=== PATIENT | female | born 1940 | race Caucasian/White ===

== ENCOUNTER 2016-11-18 14:45 | Emergency (ER) | payer MEDICARE, BC ==
[2016-11-18 14:54] VITALS: BP 124/66
[2016-11-18] MEDS ORDERED: NS 0.9% 1000 ML* 1,000 ML IV ONE (15:59)
[2016-11-18] MEDS ORDERED: Ondansetron INJ* 2 MG/ML VIAL IV ONE ×2 (15:59→17:13)
[2016-11-18 16:09] LABS: Hematocrit 43 % (35-47); Hemoglobin 14.1 g/dl (12.0-16.0); Mean Corpuscular HGB Conc 33 g/dl (31-36); Mean Corpuscular Hemoglobin 30 pg (27-31); Mean Corpuscular Volume 91 fL (80-97); Mean Platelet Volume 10 um3 (7.4-10.4); Red Blood Count 4.69 10^6/ul (4.0-5.4); Red Cell Distribution Width 14 % (10.5-15); White Blood Count 10.1 10^3/ul (3.5-10.8)
[2016-11-18 16:15] LABS: Urine Bacteria Absent (Absent); Urine Bilirubin Negative (Negative); Urine Glucose Negative (Negative); Urine Nitrite Negative (Negative)
[2016-11-18 16:36] LABS: Albumin 3.9 g/dL (3.2-5.2); BUN/Creatinine Ratio 13.8 (8-20); C Reactive Protein 54.43 mg/L (< 5.00); Calcium 9.4 mg/dL (8.6-10.3); EGFR African American 74.7 (>60); EGFR Non-African American 58.1 (>60); Globulin 3.3 g/dL (2-4); Magnesium 1.9 mg/dL (1.9-2.7); Potassium 3.3 mmol/L (3.5-5.0); Total Bilirubin 0.8 mg/dL (0.2-1.0); Total Protein 7.2 g/dL (6.4-8.9)
--- NOTE | 2016-11-18 16:36 | RAD ---
INDICATION: Fever and abdominal pain COMPARISON: CT abdomen pelvis October 15, 2016 TECHNIQUE: Supine and upright views of the abdomen were obtained. FINDINGS: The small bowel and colon appear nondistended. Gas is seen throughout the length of the transverse colon but there is no pathologic dilatation of the transverse colon. No free intraperitoneal air is seen. Surgical material is seen overlying the upper midline pelvis. No grossly abnormal or pathologic appearing calcifications are noted. Visualized bones are within normal limits for the patient's age. IMPRESSION: No radiographically apparent acute abdominal abnormality.
[2016-11-18] MEDS ORDERED: Acetaminophen ADULT LIQ* 650 MG/20.3 ML UDC PO ONE (17:15)
[2016-11-18] MEDS ORDERED: Potassium Chlor TAB* 20 MEQ TAB.ER PO ONE (17:21)
--- NOTE | 2016-11-18 18:57 | ED ---
Ronnie Recinos Auryana, scribed for Harris Gibson MD on 11/18/16 at 1558 . Abdominal Pain/Female - HPI Summary HPI Summary: 76 year old female presents with abdominal pain starting this morning. She reports a fever yesterday (101.1 - on arrival 100.5). Patient also had nausea and diarrhea (x1 yesterday - small BM - but NML this morning). She does report that last week she had an U.R.I. with a sore throat. PMHx of colitis, migraines , hypothyroidism, OA, hysterectomy, and colon CA (1990). FHx is significant for cancer, DE and stroke. - History of Current Complaint Chief Complaint: EDAbdPain Stated Complaint: FEVER,ABD PAIN Time Seen by Provider: 11/18/16 15:47 Hx Obtained From: Patient Hx Last Menstrual Period: N/A ?: No Onset/Duration: Gradual Onset, Lasting Hours - this morning, Still Present Timing: Constant Severity Initially: Mild Severity Currently: Mild Pain Intensity: 2 Pain Scale Used: 0-10 Numeric Location: Diffuse Associated Signs and Symptoms: Positive: Fever, Nausea, Diarrhea. Negative: Vomiting Allergies/Adverse Reactions: Allergies Allergy/AdvReac Type Severity Reaction Status Date / Time Cephalosporins Allergy Severe N/V Verified 10/15/16 16:32 Morphine Allergy Severe N/V SEVERE Verified 10/15/16 16:32 Nitrofurantoin Allergy Severe N/V, Verified 10/15/16 16:32 [From Macrodantin] FLUSHED SKIN Sumatriptan [From Imitrex] Allergy Severe Difficulty Verified 10/15/16 16:32 Breathing Sulfa Antibiotics Allergy Unknown Unknown Verified 10/15/16 16:32 Reaction Details PMH/Surg Hx/FS Hx/Imm Hx Endocrine/Hematology History: Reports: Hx Thyroid Disease Denies: Hx Anticoagulant Therapy, Hx Diabetes, Other Endocrine/Hematological Disorders Cardiovascular History: Reports: Other Cardiovascular Problems/Disorders - Dyslipidemia Denies: Hx Hypertension, Hx Pacemaker/ICD Respiratory History: Reports: Hx Sleep Apnea - SLEEP TEST 1 YR AGO, MILD APNEA Denies: Hx Asthma, Hx Chronic Obstructive Pulmonary Disease (COPD), Other Respiratory Problems/Disorders GI History: Denies: Other GI Disorders History: Denies: Hx Renal Disease, Other Problems/Disorders Musculoskeletal History: Reports: Hx Arthritis - Osteoarthritis, HANDS, FEET, Hx Bursitis - HIPS, GOES TO PT FOR THERAPY, Other Musculoskeletal History - SCIATICA Sensory History: Reports: Hx Contacts or Glasses - GLASSES, Hx Vision Problem Denies: Hx Hearing Aid, Other Sensory Impairments Opthamlomology History: Reports: Hx Contacts or Glasses - GLASSES, Hx Vision Problem Denies: Other Sensory Impairments Neurological History: Reports: Hx Headaches - 1-2/MONTH, Hx Migraine - TAKES AXERT PRN Denies: Hx Dementia, Hx Seizures, Other Neuro Impairments/Disorders Psychiatric History: Denies: Hx Substance Abuse, Other Psychiatric Issues/Disorders - Cancer History Cancer Type, Location and Year: 1990- colon cancer. Sciatica - Surgical History Surgery Procedure, Year, and Place: 1960 [id number]. 1962 [id number]. 1963 [id number]. 1968 VEIN STRIPPING RIGHT LEG- [facility] [place]. 1983 HYSTERECTOMY- [facility] [place]. 1990 COLON CANCER- [facility] Hx Anesthesia Reactions: Yes - SEVERE N/V AFTER SURG R/T MORPHINE Infectious Disease History: No Infectious Disease History: Denies: Hx Hepatitis, Hx Human Immunodeficiency Virus (HIV), Traveled Outside the in Last 30 Days - Family History Known Family History: Positive: Cardiac Disease - DE, Other - CVA - mother, cancer - Social History Occupation: Retired Lives: With Family Alcohol Use: None Hx Substance Use: No Substance Use Type: Reports: None Hx Tobacco Use: No Smoking Status (MU): Never Smoked Tobacco Review of Systems Positive: Fever Eyes: Negative ENT: Negative Cardiovascular: Negative Respiratory: Negative Positive: Abdominal Pain, Diarrhea, Nausea Genitourinary: Negative Musculoskeletal: Negative Skin: Negative Neurological: Negative Psychological: Normal All Other Systems Reviewed And Are Negative: Yes Physical Exam - Summary Physical Exam Summary: VITAL SIGNS: Reviewed. GENERAL: Patient is a well-developed and nourished female who is lying comfortable in the stretcher. Patient is not in any acute respiratory distress. HEAD AND FACE: Normocephalic and atraumatic. EYES: PERRLA, EOMI x 2, No injected conjunctiva. EARS: Hearing grossly intact. Ear canals and tympanic membranes are WNL. MOUTH: Oropharynx within normal limits. NECK: Supple, trachea is midline, no adenopathy, no JVD. CHEST: Symmetric, no tenderness at palpation LUNGS: Clear to auscultation bilaterally. No wheezing or crackles. CVS: RRR, S1 and S2 present, no murmurs or gallops appreciated. ABDOMEN: Soft, diffuse abdominal tenderness mostly in the LLQ. No signs of distention. Positive bowel sounds. No rebound no guarding, and no masses palpated. No abdominal bruit or pulsations. EXTREMITIES: FROM in all major joints, no edema, no cyanosis or clubbing. NEURO: Alert and oriented x 3. No acute neurological deficits. Speech is normal. SKIN: Dry and warm Triage Information Reviewed: Yes Vital Signs On Initial Exam: Initial Vitals Temp Pulse Resp BP 100.5 F 91 20 124/66 11/18/16 14:47 11/18/16 14:47 11/18/16 14:47 11/18/16 14:47 Vital Signs Reviewed: Yes Diagnostics - Vital Signs Vital Signs Temp Pulse Resp BP Pulse Ox 11/18/16 14:50 100.5 F 91 20 124/66 99 11/18/16 14:47 100.5 F 91 20 124/66 - Laboratory Result Diagrams: 11/18/16 15:40 11/18/16 15:40 Lab Statement: Any lab studies that have been ordered have been reviewed, and results considered in the medical decision making process. - Radiology ABD XR Xray Interpretation: No Acute Changes Radiology Interpretation Completed By: Radiologist - EKG 17:23 EKG Interpretation: NSR @79 BPM, NO ST ELEVATION Re-Evaluation - Re-Evaluation First Eval Re-Evaluation Time: 17:59 Change: Improved Comment: patient reports that she is feeling better and does not have any more abdominal pain. however, had an episode of watery diarrhea without blood. Abdominal Pain Fem Course/Dx - Course Course Of Treatment: 76 year old female presents with abdominal pain starting this morning. She reports a fever yesterday (101.1 - on arrival 100.5). Patient also had nausea and diarrhea (x1 yesterday - small BM - but NML this morning). She does report that last week she had an U.R.I. with a sore throat. PMHx of colitis, migraines, hypothyroidism, OA, hysterectomy, and colon CA (1990 ). FHx is significant for cancer, DE and stroke. Test results are found within normal limits except for platelets 138, K 3.3, glucose 124, CRP 54.43 UA is negative. CXR impression: No radiographically apparent acute abdominal abnormality. In the ED course she was given IV fluids for hydration, tylenol for the fever and zofran for nausea. After medications she is feeling better. She reports her abdominal pain has subsided but she developed and episode of Diarrhea. Diarrhea is watery w/o bloods. Stool cultures sent. Patient reports that she is feeling better and she wants to go home. SHe reports that she will f /u the stool culture with his PCP. Patient was instructed that it will take another 40 minutes for the stool culture, fecal leukocytes and c diff to return. She declines and she wants to go home. Patient is hemodynamically stable and A+O x 3. - Diagnoses Differential Diagnosis: Positive: Other Provider Diagnoses: Abdominal pain, Nausea & vomiting, Diarrhea Discharge - Discharge Plan Condition: Stable Disposition: HOME Prescriptions: Ondansetron ODT TAB* [Zofran 4 MG Odt TAB*] 4 mg PO Q6H PRN #10 tab.odt PRN Reason: Vomiting Patient Education Materials: Acute Nausea and Vomiting (ED), Acute Diarrhea (ED ), Acute Abdominal Pain (ED) Referrals: Twan Guerrero MD [Primary Care Provider] - 2 Days The documentation as recorded by the Ronnie milian Auryana accurately reflects the service I personally performed and the decisions made by me, Harris Gibson MD.
== END 2016-11-18 19:00 | disposition home or self-care (01) ==
LOC: ED 14:45
DX: R10.9 Unspecified abdominal pain (principal); R11.2 Nausea with vomiting, unspecified; R50.9 Fever, unspecified; R19.7 Diarrhea, unspecified
CPT/HCPCS: 36415; 74020; 80053; 81003; 81015; 82150; 83605; 83630; 83690; 83735; 85025; 86140; 87493; 93005; 96374; 96376; 99284; A9270-GY; J2405

== ENCOUNTER 2018-03-27 10:09 | Emergency (ER) | payer MEDICARE, BC ==
--- NOTE | 2018-03-27 10:19 | ED ---
Adult Trauma - HPI Summary HPI Summary: A 77 y/o F presents to ED s/p fall with c/o dizziness onset shortly [employer]. Pt was walking to her car from the diner and tripped on the sidewalk and fell onto her knees and face. She states not being dizzy prior to the fall, only afterwards. Associated sx: nausea, pale, diaphoresis, nose pain, knee pain. Denies LOC, SALAS, vision changes. Alleviating factors: supine position. Pt was given 4 Zofran by EMS. Denies being on blood thinners. PMHx: Colonoscopy 3 days ago, no polyps found. Denies PMHx: CVA, MD. Tetanus is not UTD. - History of Current Complaint Stated Complaint: FALL Hx Obtained From: Patient, EMS Hx Last Menstrual Period: N/A Mechanism of Injury: Fall Onset/Duration: Traumatic - fall, Still Present Onset of Pain: Immediate Onset Severity: Moderate Current Severity: Moderate Pain Scale Used: 0-10 Numeric Location: Other - nose pain Alleviating Factor(s): EMS Treatment - 4 zofran, Other - pos: supine Associated Signs & Symptoms: Positive: Nausea/Vomiting, Other: - pos: pale; diaphoresis; nose and knee pain - Allergy/Home Medications Allergies/Adverse Reactions: Allergies Allergy/AdvReac Type Severity Reaction Status Date / Time morphine Allergy Severe Severe Verified 03/05/18 10:40 Nausea And Vomiting sumatriptan [From Imitrex] Allergy Severe Difficulty Verified 03/05/18 10:40 Breathing Cephalosporins Allergy Nausea And Verified 03/05/18 10:40 Vomiting nitrofurantoin Allergy nausea and Verified 03/05/18 10:40 [From Macrodantin] vomiting, flushed skin Sulfa (Sulfonamide Allergy Unknown Verified 03/05/18 10:40 Antibiotics) Reaction Details PMH/Surg Hx/FS Hx/Imm Hx Previously Healthy: No Endocrine/Hematology History: Reports: Hx Thyroid Disease Denies: Hx Anticoagulant Therapy, Hx Diabetes, Other Endocrine/Hematological Disorders Cardiovascular History: Reports: Other Cardiovascular Problems/Disorders - Dyslipidemia Denies: Hx Hypertension, Hx Pacemaker/ICD Respiratory History: Reports: Hx Sleep Apnea - SLEEP TEST 1 YR AGO, MILD APNEA Denies: Hx Asthma, Hx Chronic Obstructive Pulmonary Disease (COPD), Other Respiratory Problems/Disorders GI History: Denies: Other GI Disorders History: Denies: Hx Renal Disease, Other Problems/Disorders Musculoskeletal History: Reports: Hx Arthritis - Osteoarthritis, HANDS, FEET, Hx Bursitis - HIPS, GOES TO PT FOR THERAPY, Other Musculoskeletal History - SCIATICA Sensory History: Reports: Hx Contacts or Glasses - GLASSES, Hx Vision Problem Denies: Hx Hearing Aid, Other Sensory Impairments Opthamlomology History: Reports: Hx Contacts or Glasses - GLASSES, Hx Vision Problem Denies: Other Sensory Impairments Neurological History: Reports: Hx Headaches - 1-2/MONTH, Hx Migraine - TAKES AXERT PRN, Other Neuro Impairments/Disorders - PAIN CLINIC PATIENT Denies: Hx Dementia, Hx Seizures Psychiatric History: Denies: Hx Substance Abuse, Other Psychiatric Issues/Disorders - Cancer History Cancer Type, Location and Year: 1990- colon cancer. Sciatica - Surgical History Surgery Procedure, Year, and Place: 1960 [id number]. 1962 [id number]. 1963 [id number]. 1968 VEIN STRIPPING RIGHT LEG- [facility] [place]. 1983 HYSTERECTOMY- [facility] [place]. 1990 COLON CANCER- [facility] Hx Anesthesia Reactions: Yes - SEVERE N/V AFTER SURG R/T MORPHINE Infectious Disease History: Denies: Hx Hepatitis, Hx Human Immunodeficiency Virus (HIV) - Family History Known Family History: Positive: Cardiac Disease - MD, Other - CVA - mother, cancer - Social History Occupation: Retired Lives: With Family Alcohol Use: None Hx Substance Use: No Substance Use Type: Reports: None Hx Tobacco Use: No Smoking Status (MU): Never Smoked Tobacco Review of Systems Positive: Skin Diaphoresis, Other - pale Negative: Blurred Vision, Diplopia ENT: Other - pos: nose pain Cardiovascular: Negative Respiratory: Negative Positive: Nausea. Negative: Abdominal Pain Genitourinary: Negative Positive: Other - pos: knee pain Positive: Bruising - to nose Neurological: Other - pos: dizziness Negative: Headache, Syncope Psychological: Normal All Other Systems Reviewed And Are Negative: No Physical Exam - Summary Physical Exam Summary: Appearance: Alert, conversive, nontoxic appearing. Pt arrived with clothes on, there is grass on her abd and lower extremities due to falling outside. Skin: Warm, dry, no mottling, no rashes, no contusions HEENT: EOMI, PERRL, moist mucous membranes. Pt has dried blood to nose. Multiple superficial abrasions to tip of nose. No septal hematoma. No hemotypanum. Neck: No masses on the neck, supple Respiratory: Clear to auscultation, breath sounds present, no rales, no rhonchi , no wheezes Cardiovascular: RRR, pulses are symmetrical in both lower and upper extremities Abdomen: Soft, non-tender Bowel Sounds: Present Musculoskeletal: No CVA tenderness, no obvious deformity, moving all extremities in a grossly normal manner. Bruising and abrasion to R patella. Neurological: A&Ox3, CN II-XII Intact, moving all extremities symmetrically Psychiatric: Normal affect and mood Triage Information Reviewed: Yes Vital Signs Reviewed: Yes - Lizz Coma Scale Best Eye Response: 4 - Spontaneous Best Motor Response: 6 - Obeys Commands Best Verbal Response: 5 - Oriented Coma Scale Total: 15 Diagnostics - Laboratory Result Diagrams: 03/27/18 10:25 03/27/18 10:24 Lab Statement: Any lab studies that have been ordered have been reviewed, and results considered in the medical decision making process. - Radiology CXR Xray Interpretation: No Acute Changes - IMPRESSION: No active cardiopulmonary dz. ED provider has reviewed this report. Radiology Interpretation Completed By: Radiologist - CT MAXILLOFACIAL CT Interpretation: Positive (See Comments) - IMPRESSION: MINIMALLY ANGULATED NASAL BONE FRACTURES BILATERALLY OF UNCERTAIN ACUITY. RECOMMEND CORRELATION WITH SITE OF PAIN. ED provider has reviewed this report. CT Interpretation Completed By: Radiologist C-SPINE CT Interpretation: No Acute Changes - IMPRESSION: 1. DEGENERATIVE DISC DISEASE AND OSTEOARTHRITIS. 2. NO ACUTE OSSEOUS INJURY TO THE CERVICAL SPINE. ED provider has reviewed this report. CT Interpretation Completed By: Radiologist BRAIN CT CT Interpretation: No Acute Changes - IMPRESSION: No acute intracranial pathology. ED provider has reviewed this report. CT Interpretation Completed By: Radiologist - EKG 1027 Cardiac Rate: NL - 56 bpm EKG Rhythm: Sinus Bradycardia EKG Interpretation: no STEMI. nml QRS/QTC. Slight T-wave increases in II, III, avF. EKG Comparison: Other - Compared with 11/18/2016. No reciprocal changes. Adult Trauma Course/Dx - Course Course Of Treatment: Pt is a 77 y/o F presenting s/p fall this AM. Pt has dried blood on nose and c/o dizziness and nausea only after the fall. Pt denies being on blood thinners. Imaging results show no acute findings except nasal bone fracture. - Diagnoses Provider Diagnoses: Nasal bone fracture Discharge - Sign-Out/Discharge Documenting (check all that apply): Patient Departure - DC - Discharge Plan Condition: Stable Disposition: HOME Patient Education Materials: Nasal Fracture (ED), Abrasion (ED), Fall Prevention (ED) Referrals: Twan Guerrero MD [Primary Care Provider] - Dell Spicer MD [Medical Doctor] - Additional Instructions: Drink plenty of water. follow up with your primary care physician. Please follow up with your primary care physician in 1 week and ENT if you have concerns regarding your nose. I have given you a referral on your discharge papers. The dermabond that I placed on your nose will fall off. you may wash your face with the dermabond on. - Attestation Statements Document Initiated by Scribe: Yes Documenting Scribe: Carol Mandel Provider For Whom Scribe is Documenting (Include Credential): Dr. Isha Brink MD Scribe Attestation: Carol Recinos, scribed for Dr. Isha Brink MD on 03/27/18 at 1214.
[2018-03-27 10:40] LABS: Hematocrit 40 % (35-47); Hemoglobin 13.1 g/dl (12.0-16.0); Mean Corpuscular HGB Conc 33 g/dl (31-36); Mean Corpuscular Hemoglobin 31 pg (27-31); Mean Corpuscular Volume 92 fL (80-97); Mean Platelet Volume 9.5 um3 (7.4-10.4); Platelet Count 139 10^3/ul (150-450); Red Cell Distribution Width 14 % (10.5-15); White Blood Count 4.1 10^3/ul (3.5-10.8)
[2018-03-27 10:52] LABS: EGFR Non-African American 57.9 (>60)
--- NOTE | 2018-03-27 10:58 | RAD ---
HISTORY: syncope COMPARISONS: None TECHNIQUE: Multiple contiguous axial CT scans were obtained of the head without intravenous contrast. FINDINGS: HEMORRHAGE/INFARCT: There is no hemorrhage or acute infarct. MASSES/SHIFT: There is no mass or shift. EXTRA-AXIAL SPACES: There are no extra-axial fluid collections. SULCI AND VENTRICLES: The sulci and ventricles are normal in size and position for the patient's stated age. CEREBRUM: There are no focal parenchymal abnormalities. BRAINSTEM: There are no focal parenchymal abnormalities. CEREBELLUM: There are no focal parenchymal abnormalities. VESSELS: The vessels are grossly normal. PARANASAL SINUSES: The paranasal sinuses are clear. ORBITS: The orbits are unremarkable. BONES AND SOFT TISSUE: No bone or soft tissue abnormalities are noted. OTHER: None IMPRESSION: NO ACUTE INTRACRANIAL PATHOLOGY.
--- NOTE | 2018-03-27 11:01 | RAD ---
HISTORY: syncope, fall COMPARISONS: None TECHNIQUE: Multiple contiguous axial CT scans were obtained of the cervical spine without intravenous contrast, with coronal and sagittal multiplanar reformations. FINDINGS: BRAIN: The visualized brain is unremarkable CENTRAL CANAL: Evaluation of the central canal is limited on CT technique; however, there is no obvious canalicular mass or epidural hemorrhage. ALIGNMENT: There is grade 1 anterolisthesis at C6-C7. VERTEBRAL BODIES: There is multilevel anterolateral marginal osteophyte formation. There is no displaced fracture. JOINTS: There is uncovertebral and facet osteoarthritis. MUSCULATURE: Unremarkable INTERVERTEBRAL DISCS: There is diffuse loss of intervertebral disc height. AXIAL IMAGES: C2-C3: There is no osseous neural foraminal narrowing or central canal stenosis. C3-C4: There is bilateral facet hypertrophy. There is no significant osseous neural foraminal narrowing or central canal stenosis. C4-C5: There is bilateral uncovertebral and facet hypertrophy. There is moderate bilateral neuroforaminal narrowing. There is no osseous central canal stenosis. C5-C6: There is bilateral uncovertebral and facet hypertrophy. There is severe right and moderate left neuroforaminal narrowing. There is no osseous central canal stenosis. C6-C7: There is bilateral facet hypertrophy. There is no osseous neural foraminal narrowing or central canal stenosis. C7-T1: There is no osseous neural foraminal narrowing or central canal stenosis. SOFT TISSUES: The visualized soft tissues of the neck are unremarkable. The prevertebral fat stripe is preserved. OTHER: None. IMPRESSION: 1. DEGENERATIVE DISC DISEASE AND OSTEOARTHRITIS. 2. NO ACUTE OSSEOUS INJURY TO THE CERVICAL SPINE.
--- NOTE | 2018-03-27 11:03 | RAD ---
HISTORY: facial trauma COMPARISONS: None TECHNIQUE: Multiple contiguous axial CT scans were obtained of the face without intravenous contrast, with coronal and sagittal multiplanar reformations. FINDINGS: BONES: There are slightly angulated age-indeterminate nasal bone fractures bilaterally without significant displacement. The pterygoid plates are intact. The orbital rims are intact. The zygomatic arches are intact. ORBITS: The globes are round. The optic nerves are symmetric. The extraocular musculature is normal. There is no post septal or intraconal inflammatory change. There is no retrobulbar hematoma. PARANASAL SINUSES: There is nasal septal deviation to the left of left-sided spurring. BRAIN AND SOFT TISSUE: Unremarkable. OTHER: Intravenous gas is noted. IMPRESSION: MINIMALLY ANGULATED NASAL BONE FRACTURES BILATERALLY OF UNCERTAIN ACUITY. RECOMMEND CORRELATION WITH SITE OF PAIN.
--- NOTE | 2018-03-27 11:21 | RAD ---
HISTORY: syncope COMPARISONS: None relevant available at the time of dictation VIEWS: 1: frontal AP view of the chest at 11:02 AM FINDINGS: LINES AND TUBES: None. CARDIOMEDIASTINAL SILHOUETTE: The cardiomediastinal silhouette is normal for portable technique. PLEURA: The costophrenic angles are sharp. No pleural abnormalities are noted. LUNG PARENCHYMA: The lungs are clear. ABDOMEN: The upper abdomen is clear. There is no subphrenic gas. BONES AND SOFT TISSUES: No bone or soft tissue abnormalities are noted. IMPRESSION: NO ACTIVE CARDIOPULMONARY DISEASE.
[2018-03-27] MEDS ORDERED: Tetan/Diph/Pertus SYR(Tdap)* 0.5 ML SYR(BOOSTRIX) use SYR IM ONE (12:14)
[2018-03-27 12:30] VITALS: BP 152/75
== END 2018-03-27 12:28 | disposition home or self-care (01) ==
LOC: ED 10:09
DX: S02.2XXA Fracture of nasal bones, initial encounter for closed fracture (principal); W01.0XXA Fall on same level from slipping, tripping and stumbling without subsequent striking against object, initial encounter; Y93.01 Activity, walking, marching and hiking; Y92.480 Sidewalk as the place of occurrence of the external cause; R42 Dizziness and giddiness; R11.0 Nausea; R00.1 Bradycardia, unspecified; I25.2 Old myocardial infarction; Z23 Encounter for immunization; Z86.73 Personal history of transient ischemic attack (TIA), and cerebral infarction without residual deficits; Z88.5 Allergy status to narcotic agent; Z88.8 Allergy status to other drugs, medicaments and biological substances; Z88.3 Allergy status to other anti-infective agents; Z88.2 Allergy status to sulfonamides
CPT/HCPCS: 36415; 70450; 70486; 71045; 72125; 80053; 83735; 84443; 84484; 85027; 90471; 90715; 93005; 99282